=== PATIENT | female | born 1990 | race Caucasian/White ===

== ENCOUNTER 2016-11-26 09:58 | Emergency (ER) | payer BC ==
--- NOTE | 2016-11-26 10:26 | EDPHY ---
H & P Stated Complaint: Intoxicated last andres;tripped on curb;L ankle injury HPI/ROS: CHIEF COMPLAINT: Ankle injury HISTORY OF PRESENT ILLNESS: Patient complains of left ankle pain. She says that she was walking last night after hanging out with friends and she tripped on a curb. She describes an inversion injury. It was mildly painful last night. When she woke this morning it was more painful and swollen. The pain is primarily lateral. No midfoot tenderness. No medial tenderness. No heel tenderness. No pain in his cook, ipsilateral knee or hip. No other associated complaints or modifying factors. She is visiting for awaiting and does not have a providers here in town PRIOR ORTHO INJURIES: None ESTABLISHED ORTHOPEDIST: None. REVIEW OF SYSTEMS: Ten systems reviewed and are negative unless otherwise noted in the HPI EXAMINATION General Appearance: Alert, no distress Cardiovascular: Pulses normal throughout. Symmetric DP and PT pulses at 2+. Brisk cap refill Neurological: A&O, sensory symmetric, strength symmetric Skin: Warm and dry, no rash. No lacerations or abrasions. Extremities: Tender to palpation over the left lateral malleolus. There is edema and mild ecchymosis. No instability of the ankle mortise. No tenderness to the left heel or midfoot. There is minimal tenderness to the medial malleolus on the left. Range of motion is intact and symmetric to the right. No other injury. Neurovascular intact. Psychiatric: Mood and affect normal DIFFERENTIAL DIAGNOSES: Including but not limited to sprain, strain, fracture, dislocation, fracture dislocation MDM: 10:10 a.m. Mechanical fall with left ankle injury. X-ray has been ordered. She is neurovascular intact with sprain evident on examination 10:30 a.m. X-ray has been interpreted by radiologist as lateral ankle sprain with potential avulsion fracture fragment off the plantar proximal aspect of the cuboid versus an unfused os peroneum. I have re-evaluated the patient. She has no pain over the cuboid subacute forms. I suspected this is a simple sprain. Will place her in a Amado boot. She will follow up with orthopedist when she returns home on Tuesday. Return here for worsening pain, swelling, numbness or tingling. She is comfortable with this plan and discharged home stable condition, neurovascular intact. ED Precautions: Worsening pain. Erythema, edema, cyanosis, pallor, paresthesia or anesthesia. SUPERVISION: This patient was independently evaluated without direct examination by the attending physician. Case was discussed with attending physician. Source: Patient Exam Limitations: No limitations - Personal History LMP (Females 10-55): 15-21 Days Ago Current Tetanus Diphtheria and Acellular Pertussis (TDAP): Yes - Medical/Surgical History Other PMH: neg - Social History Smoking Status: Never smoked Constitutional: Initial Vital Signs Temperature (C) 98.4 F 11/26/16 09:59 Heart Rate 106 H 11/26/16 09:59 Respiratory Rate 18 11/26/16 09:59 Blood Pressure 120/89 H 11/26/16 09:59 O2 Sat (%) 97 11/26/16 09:59 O2 Delivery Mode Room Air Allergies/Adverse Reactions: latex adhesives Allergy (Mild, Uncoded 11/26/16 10:04) Rash Home Medications: Medication Instructions Recorded Acetaminophen/Codeine 300/30Mg 1 each PO Q6 PRN #15 tab 11/26/16 [Tylenol #3 (*)] Medical Decision Making - Diagnostics Imaging Results: Imaging Impressions Ankle X-Ray 11/26/16 10:05 Impression: Lateral ankle sprain with a potential avulsion fracture fragment off the plantar proximal aspect of the cuboid (versus an unfused os peroneum). Departure - Departure Disposition: Home, Routine, Self-Care Clinical Impression: Ankle sprain Qualifiers: Encounter type: initial encounter Involved ligament of ankle: unspecified ligament Laterality: left Qualified Code(s): S93.402A - Sprain of unspecified ligament of left ankle, initial encounter Condition: Good Instructions: Ankle Sprain (ED) Additional Instructions: 1. Ice and elevate often 2. 600 mg ibuprofen every 6-8 hours as needed for painAnd swelling 3. Return here for worsening pain, numbness or tingling 4. Follow up with Orthopedics when you return back home Referrals: UNKNOWN,UNK [Other] - As per Instructions Tripp Marrero MD [Medical Doctor] - As per Instructions Prescriptions: Acetaminophen/Codeine 300/30Mg [Tylenol #3 (*)] 1 each PO Q6 PRN #15 tab PRN Reason: Pain, Mild
[2016-11-26 10:56] VITALS: BP 120/77; PULSE 70; RESP 14; TEMP 97.9; O2SAT 94
== END 2016-11-26 10:56 | disposition home or self-care (01) ==
DX: S93.402A Sprain of unspecified ligament of left ankle, initial encounter (principal); W18.49XA Other slipping, tripping and stumbling without falling, initial encounter; Y99.8 Other external cause status; Y93.01 Activity, walking, marching and hiking
CPT/HCPCS: L4386